=== PATIENT | male | born 1980 | race Caucasian/White ===

== ENCOUNTER 2024-04-03 08:23 | Outpatient (REF) | payer MEDICAID, SELFPAY ==
[2024-04-03 14:17] LABS: MANUAL DIFF FLAG NO
[2024-04-03 14:42] LABS: Basophils Absolute Auto 0.1 X10*3/uL (0.0-0.2); Basophils Percent Auto 0.7 % (0-2); Eosinophils Absolute Auto 0.2 X10*3/uL (0.0-0.4); Eosinophils Percent Auto 2.1 % (0-4); Hematocrit 48.4 % (42.0-52.0); Hemoglobin 16.2 g/dl (14.0-18.0); Imm Gran Abs Auto 0.03 X10*3/uL (0.00-0.03); Imm Gran Pct Auto 0.3 % (0.0-0.4); Lymphocytes Absolute Auto 2.3 X10*3/uL (1.2-4.9); Lymphocytes Percent Auto 22.5 % (20-40); Mean Corpuscular HGB Conc 33.5 g/dl (31.0-36.0); Mean Corpuscular Hemoglobin 28.5 pg (27.0-33.0); Mean Corpuscular Volume 85.2 fL (80.0-98.0); Mean Platelet Volume 10.8 fL (9.4-12.4); Monocytes Absolute Auto 0.6 X10*3/uL (0.1-1.2); Monocytes Percent Auto 6.2 % (2-11); Neutrophils Absolute Auto 6.9 x10*3/uL (2.0-8.3); Neutrophils Percent Auto 68.2 % (45-73); Platelet Count 285 X10*3/uL (160-400); Red Blood Count 5.68 X10*6/uL (4.60-5.80); Red Cell Distribution Width 12.9 % (11.0-16.0); White Blood Count 10.1 X10*3/uL (4.8-10.8)
[2024-04-03 15:09] LABS: Alanine Aminotransferase 25 U/L (0-40); Albumin Level 4.1 g/dL (3.5-5.0); Alkaline Phosphatase 113 U/L (39-117); Anion Gap 18 (12-20); Aspartate Amino Transferase 22 U/L (5-37); Bilirubin Direct 0.1 mg/dL (0.0-0.5); Bilirubin Total 0.6 mg/dL (0.0-1.0); Blood Urea Nitrogen 17 mg/dL (9-16); Calcium 9.7 mg/dL (8.4-10.2); Carbon Dioxide 23 mmol/L (22-29); Chloride 101 mmol/L (96-108); Cholesterol 283 mg/dL (<200); Estimated Glomerular Filt Rate > 60; Glucose Fasting 245 mg/dL (60-99); Glucose Random 243 mg/dL (60-115); HDL Cholesterol 37 mg/dL (>40); Potassium 4.2 mmol/L (3.3-5.1); Sodium 138 mmol/L (135-145); Total Protein 7.7 g/dL (6.5-8.0); Triglycerides 521 mg/dL (<150)
[2024-04-03 15:10] LABS: Creatinine Urine 147.46 mg/dL; Microalbum/Creatinine Ratio Ur 35.9 ug/mg cr (<30)
[2024-04-03 15:11] LABS: Prostate Specific Antigen 0.46 ng/mL (<0.05-4.0)
[2024-04-03 15:22] LABS: TSH reflex Free T4 1.96 uIU/mL (0.32-4.0)
[2024-04-03 15:34] LABS: Estimated Average Glucose 223 mg/dL; Hemoglobin A1c % 9.4 % (<6.0)
== END 2024-04-03 08:24 | disposition home or self-care (01) ==
LOC: HO.CHCLDS 08:23
PROVIDERS: Visit Provider Pediatrics
DX: R73.03 Prediabetes (principal); R35.0 Frequency of micturition
CPT/HCPCS: 36415; 80048; 80053; 80061; 82043; 82248; 82570; 83036; 84153; 84443; 85025

== ENCOUNTER 2024-12-31 09:34 | Outpatient (REF) | payer MEDICAID, SELFPAY ==
--- OUTSIDE RECORDS SUMMARY | 2024-12-31 09:51 | XMS_ITS | Encounter Summary ---
Author Organization [employer] Address 75 [facility] 7 [place] [address] Care Team Providers Care Rolling Attendant Name Role Phone Hilary Levy MD Primary Care Provider [phone] Dulce Borrero PharmD Unavailable [phone] Encounter Details Date Type Department Care Team ([facility] st Contact Info) Description 12/31/2024 9:00 AM EDT Office Visit [facility] CHC MED & PEDS [address] [place], [place] [phone] Hilary Levy MD [address] [place] [address] Type 2 diabetes mellitus with morbid obesity (CMS/HCC) (Primary Dx); New onset type 2 diabetes mellitus (CMS/HCC) Social History Tobacco Use Types Packs/Day Years Used Date Smoking Tobacco: Never Passive Smoke Exposure: Never Smokeless Tobacco: Never Alcohol Use Standard Drinks/Week Comments Never 0 (1 standard drink = 0.6 oz pur e alcohol) Alcohol Answer Date Recorded How often do you have a drink containing alcohol ? 1 07/01/2024 How many drinks containing a lcohol do you have on a typical day when you are drinking? 2 07/01/2024 How often do you have six or more drinks on one occasion? 1 07/01/2024 Depression Answer Date Recorded Patient Health Questionnaire-9 Score 3 08/13/2024 Patient Health Questionnaire-9 Score 3 08/13/2024 Last PHQ-9: Questionnaire Data Not on file 0 08/13/2024 Housing Stability Answer Date Recorded What is your housing situation today? I have manuel son 03/25/[address] you li ve. Do you have problems with any of the following? None of the above 03/25/2024 Food Insecurity Answer Date Recorded Within the past 12 months, y ou worried that your food would run out before you got money to buy more: Never True 03/25/2024 Within the past 12 months,th e food you bought just didn't last and you didn't have enough money to get more: Never True Transportation Answer Date Recorded In the past 12 months, has l ack of transportation kept you from medical appts, meetings, work or from getting things needed for daily living? No 03/25/2024 Utilities Answer Date Recorded In the past 12 months, has t he electric, gas, oil or water company threatened to shut off services in your home? No 03/25/2024 Depression Answer Date Recorded Patient Health Questionnaire-2 Score 1 08/13/2024 Internet Access Answer Date Recorded Internet Access Q1 Yes 04/13/2024 Internet Access Q2 Not on file 04/13/2024 Sex and Gender Information Value Date Recorded Sex Assigned at Male 06/11/2022 10:35 AM EDT Legal Sex Male 10:35 AM EDT Gender Identity Male 04/16/2024 2:33 PM EDT Sexual Orientation Straight 04/16/2024 2: 33 PM EDT documented as of this encounter Last Filed Vital Signs Vital Sign Reading Time Taken Comments Blood Pressure 158/88 12/31/2024 9:08 AM EDT Pulse 92 12/31/2024 9:08 AM EDT Temperature 36.6 ??C (97.8 ??F) 12/31/2024 9:08 AM ED T Respiratory Rate 20 12/31/2024 9:08 AM EDT Oxygen Saturation - - Inhaled Oxygen Concentration - - Weight 154 kg (339 lb) 12/31/2024 9:08 AM EDT Height 182.9 cm (6') 12/31/2024 9:08 AM EDT Body Mass Index 45.98 12/31/2024 9:08 AM EDT documented in this encounter Plan of Treatment Upcoming Encounters Date Type Department Care Team ([facility] st Contact Info) Description 01/18/2025 11:00 AM EDT Medication Management [facility] CHC MED & PEDS [address] [place] [address] Dulce Borrero, JerryD [address] [place] [address] 04/02/2025 9:00 AM EDT Office Visit [facility] CHC MED & PEDS [address] [place] [address] Hilary Levy MD [address] [place] [address] documented as of this encounter Procedures Procedure Name Priority Date/Time Associated Diagnosis Comments POCT GLUCOSE Routine 12/31/2024 9:34 AM EDT Type 2 diabetes mellitus with morbid obesity (CMS/HCC) documented in this encounter Results * POCT Glucose (12/31/2024 9:34 AM EDT) Glucose Blood, POC 152 60 - 200 mg/dL QC Media Lot # [id number] Lot# Expiration Date , Blood Capillary blood specimen / Unknown 12/31/2024 9:34 AM EDT Hilary Levy MD POINT OF CARE TEST ENTER/EDIT ORDERABLES Final Result documented in this encounter Visit Diagnoses Diagnosis Type 2 diabetes mellitus with morbid obesity (CMS/HCC)- Primary New onset type 2 diabetes mellitus (CMS/HCC) documented in this encounter Additional Health Concerns Assessment Noted Time PHQ-9 Depression Total Score: 3 08/13/19 25 10:33 AM EST documented as of this encounter Care Teams Rolling Attendant Relationship Specialty Start Date End Date Hilary Levy MD [address] [place] [address] PCP - General Family Medicine 12/31/18 Dulce Borrero, JerryD [address] [place] [address] Pharmacist Internal Medicine 09/07/24 documented as of this encounter
--- OUTSIDE RECORDS SUMMARY | 2024-12-31 09:51 | XMS_ITS | Encounter Summary ---
Author Organization [employer] Address 75 [facility] 7t [place] [address] Care Team Providers Care Vp Customer Development Name Role Phone Hilary Levy MD Primary Care Provider [phone] Dulce Borrero PharmD Unavailable Reason for Visit * Reason Comments Med Refill Encounter Details Date Type Department Care Team ([facility] st Contact Info) Description 12/30/2024 Refill [facility] CHC MED & PEDS [address] [place] [address] Dulce Borrero, PharmD [address] [place] [address] Social History Tobacco Use Types Packs/Day Years [...] PM EDT documented as of this encounter Plan of Treatment Upcoming Encounters Date Type Department Care Team (Late st Contact Info) Description 01/18/2025 11:00 AM EDT Medication Management [facility] MED & PEDS [address] [place] [address] Dulce Borrero, PharmD [address] [place] [address] 04/02/2025 9:00 AM EDT Office Visit [facility] MED & PEDS [address] [place] [address] Hilary Levy MD [address] [place] [address] documented as of this encounter Visit Diagnoses Not on filedocumented in this encounter Additional Health Concerns Assessment Noted Time PHQ-9 Depression Total Score: 3 08/13/19 25 10:33 AM EST documented as of this encounter Care Teams Vp Customer Development Relationship Specialty Start Date End Date Hilary Levy MD [address] [place] [address] PCP - General Family Medicine 12/31/18 Dulce Borrero PharmD [address] [place] [address] Pharmacist Internal Medicine 09/07/24 documented as of this encounter
--- OUTSIDE RECORDS SUMMARY | 2024-12-31 09:51 | XMS_ITS | Encounter Summary ---
Author Organization [employer] Address 75 [facility] 7t [place] [address] Care Team Providers Care Tensioning Machine Operator Name Role Phone Hilary Levy MD Primary Care Provider [phone] Dulce Borrero PharmD Unavailable [phone] Encounter Details Date Type Department Care Team (Latest Contact Info) Description 12/31/2024 Travel Social History Tobacco Use Types Packs/Day Years [...] Description 01/18/2025 11:00 AM EDT Medication Management [facility] MED & PEDS [address] [place] [address] Dulce Borrero PharmD [address] [place] [address] 04/02/2025 9:00 AM EDT Office Visit [facility] MED & PEDS [address] [place] [address] Hilary Levy MD [address] [place] [address] documented as of this encounter Visit Diagnoses Not on filedocumented in this encounter Additional Health Concerns Assessment Noted Time PHQ-9 Depression Total Score: 3 08/13/19 25 10:33 AM EST documented as of this encounter Care Teams Tensioning Machine Operator Relationship Specialty Start Date End Date Hilary Levy MD [address] [place] [address] PCP - General Family Medicine 12/31/18 Dulce Borrero PharmD [address] [place] [address] Pharmacist Internal Medicine 09/07/24 documented as of this encounter
--- OUTSIDE RECORDS SUMMARY | 2024-12-31 09:51 | XMS_ITS | Encounter Summary ---
Author Organization [employer] Address 75 [facility] 7 [place] [address] Care Team Providers Care Human Projectile Name Role Phone Hilary Levy MD Primary Care Provider [phone] Dulce Borrero PharmD Unavailable [phone] Encounter Details Date Type Department Care Team ([facility] st Contact Info) Description 04/16/2024 Orders Only [facility] CHC MED & PEDS [address] [place], [place] [phone] Hilary Levy MD [address] [place] [address] New onset type 2 diabetes mellitus (CMS/HCC) Social History Tobacco Use Types Packs/Day Years Used Date Smoking Tobacco: Never Passive Smoke Exposure: Never Smokeless Tobacco: Never Alcohol Use Standard Drinks/Week Comments Never 0 (1 standard drink = 0.6 oz pur e alcohol) Depression Answer Date Recorded Patient Health Questionnaire-9 Score 12 04/02/2024 Patient Health Questionnaire-9 Score 12 04/02/2024 Last PHQ-9: Questionnaire Data Not on file 0 04/02/2024 Housing Stability Answer Date Recorded What is your housing situation today? I have manuelroxanna son 03/25/[address] you [...] Answer Date Recorded Patient Health Questionnaire-2 Score 4 04/02/2024 Internet Access Answer Date Recorded Internet Access [...] Description 01/18/2025 11:00 AM EDT Medication Management [facility] MED & PEDS [address] [place] [address] Dulce Borrero PharmD [address] [place] [address] 04/02/2025 9:00 AM EDT Office Visit [facility] MED & PEDS [address] [place] [address] Hilary Levy MD [address] [place] [address] documented as of this encounter Visit Diagnoses Diagnosis New onset type 2 diabetes mellitus (CMS/HCC) documented in this encounter Additional Health Concerns Assessment Noted Time PHQ-9 Depression Total Score: 12 024 2:49 PM EDT documented as of this encounter Care Teams Human Projectile Relationship Specialty Start Date End Date Hilary Levy MD [address] [place] [address] PCP - General Family Medicine 12/31/18 Dulce Borrero PharmD [address] [place] [address] Pharmacist Internal Medicine 09/07/24 documented as of this encounter
--- OUTSIDE RECORDS SUMMARY | 2024-12-31 09:51 | XMS_ITS | Encounter Summary ---
Author Organization [employer] Address 75 [facility] 7 [place] [address] Care Team Providers Care Appliquer Name Role Phone Hilary Levy MD Primary Care Provider [phone] Dulce Borrero PharmD Unavailable [phone] Reason for Visit * Reason Comments Med Change Request Encounter Details Date Type Department Care Team ([facility] Contact Info) Description 04/16/2024 Refill C CHC MED & PEDS [address] [place], [place] [phone] Hilary Levy MD [address] [place] [address] Social History Tobacco Use Types Packs/Day Years [...] Description 01/18/2025 11:00 AM EDT Medication Management [facility] MED & PEDS [address] [place] [address] Dulce Borrero PharmD [address] [place] [address] 04/02/2025 9:00 AM EDT Office Visit [facility] MED & PEDS [address] [place] [address] Hilary Levy MD [address] [place] [address] documented as of this encounter Visit Diagnoses Not on filedocumented in this encounter Additional Health Concerns Assessment Noted Time PHQ-9 Depression Total Score: 12 024 2:49 PM EDT documented as of this encounter Care Teams Appliquer Relationship Specialty Start Date End Date Hilary Levy MD [address] [place] [address] PCP - General Family Medicine 12/31/18 Dulce Borrero PharmD [address] [place] [address] Pharmacist Internal Medicine 09/07/24 documented as of this encounter
--- OUTSIDE RECORDS SUMMARY | 2024-12-31 09:51 | XMS_ITS | Clinical Summary ---
Author Organization [employer] Address [address] [facility] 7t [place] [address] Care Team Providers Care Goodwill Ambassador Name Role Phone Hilary Levy MD Primary Care Provider [phone] Dulce Borrero PharmD Unavailable [phone] Allergies No known active allergies Medications * This document contains information received from the source organization and may not represent a complete record from that organization. lidocaine-pril ocaine (Emla) 2.5-2.5 % cream apply by topical route 2 times every day as needed. as needed 04/27/20 22 Active Blood Glucose Monitoring Suppl (Axeda Lite) w/Device kitIndications :New onset type 2 diabetes mellitus ([facility]) Use to test blood sugar 2 times daily 1 kit 04/16/20 24 Active Blood Pressure kitIndications :New onset type 2 diabetes mellitus ([facility]) Check BP daily 1 kit 06/04/20 24 Active ibuprofen 600 MG tablet TAKE 1 TABLET BY MOUTH EVERY 8 HOURS NEEDED FOR PAIN 90 tablet 2 07/21/20 24 Active metFORMIN (Glucophage) 1000 MG tablet Take 1 tablet (1,000 mg) by mouth with breakfast and with evening meal. 60 tablet 08/13/19 25 026 Active omega-3, EPA + DHA, (fish oil) 1000 MG capsule Take 1 capsule orally twice a day 60 capsule 08/13/19 25 Active lisinopril 20 MG tablet Take 1 tablet (20 mg) by mouth Once per day. 30 tablet 08/13/19 25 026 Active aspirin 81 MG EC tablet Take 1 tablet (81 mg) by mouth Once per day. 30 tablet 08/13/19 25 026 Active melatonin 10 MG tablet Take 1 tab orally at bedtime for insomnia 30 tablet 5 08/13/19 25 Active Alcohol Swabs 70 % padsIndication s:New onset type 2 diabetes mellitus (CMS/HCC) Use to test blood sugar 2 times daily 100 each 10/24/19 25 Active [facility] BLOOD SUGAR TWICE A DAY 100 each 10/24/19 25 Active Semaglutide,0. 25 or 0.5MG/DOS, (Ozempic, 0.25 or 0.5 MG/DOSE,) 2 MG/3ML solution pen-injector Inject 0.25 mg under the skin 1 (one) time per week for 28 days, THEN 0.5 mg 1 (one) time per week for 14 days. Continue 0.5mg weekly if tolerated. 3 mL 1 10/24/19 25 Active loratadine (Claritin) 10 MG tablet Take 1 tablet (10 mg) by mouth Once per day. 30 tablet 01/01/20 25 Active glucose blood (FREESTYLE LITE) test stripIndicatio ns:New onset type 2 diabetes mellitus (CMS/HCC) Use to test blood sugar 2 times daily 100 each 01/01/20 25 026 Active loratadine (Claritin) 10 MG tablet Take 1 tablet (10 mg) by mouth Once per day. 30 tablet 08/13/19 25 025 Discontinued(Re order (will not trigger notification to Pharmacy)) glucose blood (FREESTYLE LITE) test stripIndicatio ns:New onset type 2 diabetes mellitus (CMS/HCC) Use to test blood sugar 2 times daily 100 each 10/24/19 25 025 Discontinued(Re order (will not trigger notification to Pharmacy)) Active Problems Problem Noted Date Diagnosed Date Morbid obesity with BMI of 40.0-44.9, adult 06/13 New onset type 2 diabetes mellitus 04/16/2024 Overview (04/16/2024): Vladimir`s a1c is 9.4 ,new onset DM, has help at home and family hx of DM.Staretd losing weight already. Declines referral to DM nurse at this time. Start metformin Dyslipidemia 04/16/2024 Encounters Date Type Department Care Team Description 12/31/2024 9:00 AM EDT Office Visit [facility] MED & PEDS [address] [place] [address] Hilary Levy MD Type 2 diabetes mellitus with morbid obesity (CMS/HCC) (Primary Dx); New onset type 2 diabetes mellitus (CMS/HCC) 12/31/2024 Travel 12/30/2024 Refill [facility] MED & PEDS [address] [place] [address] Dulce Borrero, PharmD 11/24/2024 Travel 11/20/2024 Travel 10/23/2024 Population Health Risk Score [facility] () Department [address] [place] [phone] Provider, Population Health Generic 10/23/2024 Travel 10/06/2024 Telephone [facility] MED & PEDS [address] [place] [address] Dulce Borrero, PharmD 10/06/2024 Travel from Last 3 Months Immunizations Immunization Administration Dates Next Due Hep B, adult 11/24/2024,10/23/2024 Pneumococcal Conjugate PCV 20 10/23/2024 Tdap 12/03/2014 Social History Tobacco Use Types Packs/Day Years [...] Orientation Straight 04/16/2024 2: 33 PM EDT Last Filed Vital Signs Vital Sign Reading Time Taken Comments Blood Pressure 158/88 12/31/2024 9:08 AM EDT Pulse 92 12/31/2024 9:08 AM EDT Temperature 36.6 ??C (97.8 ??F) 12/31/2024 9:08 AM ED T Respiratory Rate 20 12/31/2024 9:08 AM EDT Oxygen Saturation 97% 10/23/2024 10:25 AM EDT Inhaled Oxygen Concentration - - Weight 154 kg (339 lb) 12/31/2024 9:08 AM EDT Height 182.9 cm (6') 12/31/2024 9:08 AM EDT Body Mass Index 45.98 12/31/2024 9:08 AM EDT Plan of Treatment Upcoming Encounters Date Type Department Care Team (Late st Contact Info) Description 01/18/2025 11:00 AM EDT Medication Management [facility] MED & PEDS [address] [place], [place] [phone] Dulce Borrero PharmD [address] [place] [address] 04/02/2025 9:00 AM EDT Office Visit [facility] CHC MED & PEDS [address] [place], [place] [phone] Hilary Levy MD [address] [place] [address] Health Maintenance Due Date Last Done Comments HIV Screening 1982 Disability Screening 1982 Diabetes: Foot Exam 1992 Eye Exam 1992 Family Planning (PISQ) 1997 Hepatitis C Screening 2000 COVID-19 Vaccine ( season) 2024 09/18/2021, 03/19/2021, 02/26/2021 Influenza Vaccine (#1) 2024 DTaP/Tdap/Td Vaccines (2 - Td or Tdap) 12/03/2024 12/03/2014 Diabetes: Hemoglobin A1C 01/23/2025 025, 07/01/2024, 04/03/2024, Additional history exists SDOH Screening 03/25/2025 03/25/2024 Diabetes: Urine Protein Screening 04/03/2025 04/03/2024 Lipid Panel 04/03/2025 04/03/2024, 12/20/2021 Hepatitis B Vaccines (3 of 3 - 19+ 3-dose series) 04/25/2025 11/24/2024, 10/23/2024 Alcohol/Substance Use Screening 07/01/2025 07/01/2024 Depression Screening 08/13/2025 08/13/2024, 08/13/19 Tobacco Screening 08/13/2025 08/13/2024 Zoster Vaccines (1 of 2) 2032 RSV Patients and Patients Aged 60 years or older (1 - 1-dose 75+ series) 2057 Pneumococcal Vaccine: Pediatrics (0 to 5 Years) and At-Risk Patients (6 to 49) Years) Completed 10/23/2024 HIB Vaccines Aged Out No longer eligi ble based on patient's age to complete this topic HPV Vaccines Aged Out No longer eligi ble based on patient's age to complete this topic Hepatitis A Vaccines Aged Out No long er eligible based on patient's age to complete this topic IPV Vaccines Aged Out No longer eligi ble based on patient's age to complete this topic Meningococcal B Vaccine Aged Out No l onger eligible based on patient's age to complete this topic Meningococcal Vaccine Aged Out No augie seble eligible based on patient's age to complete this topic RSV under 20 months Aged Out No longe r eligible based on patient's age to complete this topic Rotavirus Vaccines Aged Out No longer eligible based on patient's age to complete this topic Procedures Procedure Name Priority Date/Time Associated Diagnosis Comments POCT GLUCOSE Routine 12/31/2024 9:34 AM EDT Type 2 diabetes mellitus with morbid obesity ([facility]/HCC) POCT GLYCATED HEMOGLOBIN, TOTAL Routine 10/23/2024 10:22 AM EDT Type 2 diabetes mellitus with morbid obesity ([facility]/HCC) ALBUMIN, RANDOM URINE W/CREATININE Routine 04/03/2024 8:30 AM EDT Prediabetes Urinary frequency LIPID PANEL, STANDARD Routine 04/03/2024 8:26 AM EDT Prediabetes Urinary frequency from Last 3 Months or Most Recently Relevant to Health Maintenance Results * POCT Glucose (12/31/2024 9:34 AM EDT) Glucose Blood, POC 152 60 - 200 mg/dL QC Media Lot # [id number] Lot# Expiration Date 425 Blood Capillary blood specimen / Unknown 12/31/2024 9:34 AM EDT Hilary Levy MD POINT OF CARE TEST ENTER/EDIT ORDERABLES Final Result * (ABNORMAL) POCT A1C (10/23/2024 10:22 AM EDT) Hemoglobin A1C 7.3(A) 4.0 - 6.0 % QC Media Lot # [id number] Lot# Expiration Date Blood 10/23/2024 10:2 2 AM EDT Hilary Levy MD POINT OF CARE TEST ENTER/EDIT ORDERABLES Final Result * (ABNORMAL) Albumin, Random Urine W/Creatinine (04/03/2024 8:30 AM EDT) Creatinine, Urine 147.46 mg/dL [facility] Microalbumin Urine 53.0 mg/L [facility] Microalbum Creatinine Ratio Ur 35.9(H) <30 ug/mg cr [facility] Comment:Albumin/Creatinine R atio Reference Ranges: Normal: < 30 ug/mg creatinine Microalbuminuria: 30 - 300 ug/mg creatinineClinical Albuminuria: > 300 ug/mg creatinine Urine (Urine, Random) 04/03/2024 8:30 AM EDT 04/03/2024 2:18 PM EDT Hilary Levy MD LAB URINE ORDERABLES Final Re sult [facility] [address] [place] [address] [phone] * (ABNORMAL) Lipid Panel, Standard (04/03/2024 8:26 AM EDT) Triglycerides 521(H) <150 mg/dL [facility] Comment:Desirable Triglyceri de: less than 150 mg/dLBorderline High Triglyceride 150-199 mg/dLHigh Triglyceride: 200-499 mg/dLVery High Triglyceride: greater than or equal to 5OO mg/dL Cholesterol 283(H) <200 mg/dL [facility] Comment:Desirable Cholestero l: less than 200 mg/dLBorderline High Cholesterol: 200-239 mg/dLHigh Cholesterol: greater than 239 mg/dL LDL Cholesterol Calculated TNP <100 mg/dL [facility] Comment:Unable to calculate the LDL. The formula of Friedwald,Franco, and Daphney is only valid if the triglycerides areless than 400 mg/dl. HDL Cholesterol 37(L) >40 mg/dL [facility] Comment:Desirable HDL: great er than 40 mg/dL Note: This HDL assay may give artificially low results in patients with liver disease. Blood Venous blood specimen / Unknown 04/03/2024 8:26 AM EDT 04/03/2024 2:19 PM EDT Hilary Levy MD LAB BLOOD ORDERABLES Final Re sult [facility] [address] [place] [address] [phone] from Last 3 Months or Most Recently Relevant to Health Maintenance Insurance [id number] Care Teams Goodwill Ambassador Relationship Specialty Start Date End Date Hilary Levy MD [address] [place] [address] PCP - General Family Medicine 5/22/19 Dulce Borrero, JerryD [address] [place] [address] Pharmacist Internal Medicine 09/07/24
--- OUTSIDE RECORDS SUMMARY | 2024-12-31 09:52 | XMS_ITS | Encounter Summary ---
Author Organization [employer] Address 75 [facility] 7 [place] [address] Care Team Providers Care Patient Portal Concierge Name Role Phone Hilary Levy MD Primary Care Provider Dulce Borrero PharmD Unavailable [phone] Reason for Visit * Reason Comments Med Change Request Encounter Details Date Type Department Care Team ([facility] Contact Info) Description 04/16/2024 Refill [facility] CHC MED & PEDS [address] [place], [place] [phone] Hilary Levy MD [address] [place] [address] New onset type 2 diabetes mellitus (CMS/HCC) [...] your housing situation today? I have manuel huy 03/25/[address] you li [...] Description 01/18/2025 11:00 AM EDT Medication Management [facility] MED & PEDS [address] [place] [address] Dulce Borrero, PharmD [address] [place] [address] 04/02/2025 9:00 AM EDT Office Visit [facility] MED & PEDS [address] [place] [address] Hilary Levy MD [address] [place] [address] documented as of this encounter Visit Diagnoses Diagnosis New onset type 2 diabetes mellitus (CMS/HCC) documented in this encounter Additional Health Concerns Assessment Noted Time PHQ-9 Depression Total Score: 12 024 2:49 PM EDT documented as of this encounter Care Teams Patient Portal Concierge Relationship Specialty Start Date End Date Hilary Levy MD [address] [place] [address] PCP - General Family Medicine 12/31/18 Dulce Borrero, PharmD [address] [place] [address] Pharmacist Internal Medicine 09/07/24 documented as of this encounter
--- OUTSIDE RECORDS SUMMARY | 2024-12-31 09:52 | XMS_ITS | Clinical Summary ---
Author Organization [employer] [facility] ity Address [address] [place] [address] Care Team Providers Care Sql Ssrs Ssis Developer Name Role Phone Unavailable Primary Care Provider Unavailabl e Social History Tobacco Use Types Packs/Day Years Used Date Smoking Tobacco: Never Assessed Sex and Gender Information Value Date Recorded Sex Assigned at Not on file Legal Sex Male 5:20 AM EST Gender Identity Not on file Sexual Orientation Not on file Plan of Treatment Health Maintenance Due Date Last Done Comments DTaP,Tdap,and Td Vaccines (1 - Tdap) 2001 Hepatitis B Vaccines (1 of 3 - 19+ 3-dose series) 2001 Cholesterol Screening (Lipid Panel) 07/15/2022 Depression Screening 07/15/2022 HIV Screening 07/15/2022 Hepatitis C Screening 07/15/2022 Social Influencers of Health Screening 07/15/2022 COVID-19 Vaccine (2023-2 5 season) 2024 Influenza Vaccine (Season Ended) 2025 HIB Vaccines Aged Out No longer eligi [...] on patient's age to complete this topic MMR Vaccines Aged Out No longer eligi ble based on patient's age to complete this topic Meningococcal ACWY Vaccine Aged Out N o longer eligible based on patient's age to complete this topic Meningococcal B Vaccine Aged Out No l onger eligible based on patient's age to complete this topic Pneumococcal Vaccine: Pediat rics (0 to 5 Years) and At-Risk Patients (6 to 64 Years) Aged Out No longer eligible b ased on patient's age to complete this topic RSV Immunization Patients Un milady 20 months Aged Out No longer eligible b ased on patient's age to complete this topic Varicella Vaccines Aged Out No longer eligible based on patient's age to complete this topic
[2024-12-31 14:35] LABS: Cholesterol 270 mg/dL (<200); HDL Cholesterol 38 mg/dL (>40); LDL Cholesterol Calculated 183 mg/dL (<100); Triglycerides 247 mg/dL (<150)
== END 2024-12-31 09:35 | disposition home or self-care (01) ==
LOC: HO.CHCLDS 09:34
PROVIDERS: Visit Provider Pediatrics
DX: E66.01 Morbid (severe) obesity due to excess calories (principal); E11.59 Type 2 diabetes mellitus with other circulatory complications
CPT/HCPCS: 36415; 80061

== ENCOUNTER 2025-06-01 10:34 | Outpatient (REF) | payer MEDICAID, SELFPAY ==
--- OUTSIDE RECORDS SUMMARY | 2025-06-01 12:37 | XMS_ITS | Encounter Summary ---
Author Organization [employer] Address [address] [facility] 7 [place] [address] Care Team Providers Care Kindergarten Aide Name Role Phone Hilary Levy MD Primary Care Provider [phone] Dulce Borrero PharmD Unavailable [phone] Encounter Details Date Type Department Care Team ([facility] st Contact Info) Description 05/31/2025 Orders Only [facility] CHC MED & PEDS [address] [place], [place] [phone] Hilary Levy MD [address] [place] [address] Family planning (Primary Dx) Social History Tobacco Use Types Packs/Day Years [...] before you got money to buy more: Sometimes True 2024 Within the past 12 months,th e food you bought just didn't last and you didn't have enough money to get more: Sometimes True 03/25/2025 Transportation Answer Date Recorded In the past [...] Care Team (Late st Contact Info) Description 06/16/2025 11:30 AM EST Office Visit [facility] MED & PEDS [address] [place] [address] Hilary Levy MD [address] [place] [address] Scheduled Orders Name Type Priority Associated Diagnoses Orde r Schedule Sickle Cell Screen Lab Routine Family planning Expected: 05/31/2025 (Approximate), Expires: 05/31/2026 documented as of this encounter Visit Diagnoses Diagnosis Family planning- Primary Other general counseling and advice for contraceptive management documented in this encounter Additional Health Concerns Assessment Noted Time PHQ-9 Depression Total Score: 3 08/13/19 25 10:33 AM EST documented as of this encounter Care Teams Kindergarten Aide Relationship Specialty Start Date End Date Hilary Levy MD [address] [place] [address] PCP - General Family Medicine 12/31/18 Dulce Borrero, [address] [place] [address] Pharmacist Internal Medicine 09/07/24 documented as of this encounter
--- OUTSIDE RECORDS SUMMARY | 2025-06-01 12:37 | XMS_ITS | Encounter Summary ---
Author Organization [employer] Address [address] [facility] 7 [place] [address] Care Team Providers Care Engine Mechanic Name Role Phone Hilary Levy MD Primary Care Provider [phone] Dulce Borrero PharmD Unavailable [phone] Reason for Visit * Reason Onset Date Comments Med Refill 02/15/2025 Encounter Details Date Type Department Care Team ([facility] Contact Info) Description 02/15/2025 Telephone [facility] CHC MED & PEDS [address] [place] [address] Hilary Levy MD [address] [place] [address] Med Refill Social History Tobacco Use Types Packs/Day Years [...] PM EDT documented as of this encounter Miscellaneous Notes * Telephone Encounter - Augusta Maldonado LPN - 02/15/2025 9:26 AM EDT Medication was sent to [facility] on 01/06/25 with 1 refill patient can call pharmacy and transfermedication. * Telephone Encounter - Tera Fulton - 02/15/2025 9:19 AM EDT TC from pt requesting medication refill. Medications needing refill : Semaglutide,0.25 or 0.5MG/DOS, (Ozempic, 0.25 or 0.5 MG/DOSE,) 2 MG/3ML solution pen-injector To be sent to: [facility]/pharmacy #[id number] - [address] documented in this encounter Plan of Treatment Upcoming Encounters Date Type Department Care Team (Late st Contact Info) Description 06/16/2025 11:30 AM EST Office Visit [facility] CHC MED & PEDS [address] [place] [address] Hilary Levy MD [address] [place] [address] documented as of this encounter Visit Diagnoses Not on filedocumented in this encounter Additional Health Concerns Assessment Noted Time PHQ-9 Depression Total Score: 3 08/13/19 10:33 AM EST documented as of this encounter Care Teams Engine Mechanic Relationship Specialty Start Date End Date Hilary Levy MD [address] [place] [address] PCP - General Family Medicine 12/31/18 Dulce Borrero PharmD [address] [place] [address] Pharmacist Internal Medicine 09/07/24 documented as of this encounter
--- OUTSIDE RECORDS SUMMARY | 2025-06-01 12:37 | XMS_ITS | Encounter Summary ---
Author Organization [employer] Address [address] [facility] 7 [place] [address] Care Team Providers Care Material Assembler Name Role Phone Hilary Levy MD Primary Care Provider [phone] Dulce Borrero PharmD Unavailable [phone] Encounter Details Date Type Department Care Team ([facility] st Contact Info) Description 04/16/2024 Orders Only [facility] CHC MED & PEDS [address] [place], [place] [phone] Hilary Levy MD [address] [place] [address] New onset type 2 diabetes mellitus (CMS/HCC) [...] Upcoming Encounters Date Type Department Care Team ([facility] st Contact Info) Description 06/16/2025 11:30 AM EST Office Visit [facility] MED & PEDS [address] [place] [address] Hilary Levy MD [address] [place] [address] documented as of this encounter Procedures Procedure Name Priority Date/Time Associated Diagnosis Comments LIPID PANEL, STANDARD Routine 12/31/2024 9:35 AM EDT New onset type 2 diabetes mellitus (CMS/HCC) documented in this encounter Results * (ABNORMAL) Lipid Panel, Standard (12/31/2024 9:35 AM EDT) Triglycerides 247(H) <150 mg/dL [facility] Comment:Desirable Triglyceri de: less than 150 mg/dLBorderline High Triglyceride 150-199 mg/dLHigh Triglyceride: 200-499 mg/dLVery High Triglyceride: greater than or equal to 5OO mg/dL Cholesterol 270(H) <200 mg/dL [facility] Comment:Desirable Cholestero l: less than 200 mg/dLBorderline High Cholesterol: 200-239 mg/dLHigh Cholesterol: greater than 239 mg/dL LDL Cholesterol Calculated 183(H) <100 mg/dL [facility] Comment:Desirable LDL: less than 100 mg/dLNear Optimal/Above Optimal LDL: 110- 129 mg/dLBorderline High LDL: 130-159 mg/dLHigh LDL: 160-189 mg/dLVery High LDL: greater than or equal to 190 mg/dL HDL Cholesterol 38(L) >40 mg/dL [facility] Comment:Desirable HDL: great er than 40 mg/dL Note: This HDL assay may give artificially low results in patients with liver disease. 12/31/2024 9:35 AM EDT 12/31/2024 2:06 PM EDT us Hilary Levy MD LAB BLOOD ORDERABLES Final Re sult [facility] [address] [place] [address] [phone] documented in this encounter Visit Diagnoses Diagnosis New onset type 2 diabetes mellitus (HCC) documented in this encounter Additional Health Concerns Assessment Noted Time PHQ-9 Depression Total Score: 12 024 2:49 PM EDT documented as of this encounter Care Teams Material Assembler Relationship Specialty Start Date End Date Hilary Levy MD [address] [place] [address] PCP - General Family Medicine 12/31/18 Dulce Borrero PharmD [address] [place] [address] Pharmacist Internal Medicine 09/07/24 documented as of this encounter
--- OUTSIDE RECORDS SUMMARY | 2025-06-01 12:37 | XMS_ITS | Encounter Summary ---
Author Organization [employer] Address [address] [facility] 7 [place] [address] Care Team Providers Care Saw Feeder Name Role Phone Hilary Levy MD Primary Care Provider [phone] Dulce Borrero PharmD Unavailable [phone] Reason for Visit * Reason Comments Med Change Request Encounter Details Date Type Department Care Team ([facility] Contact Info) Description 04/16/2024 Refill C CHC MED & PEDS [address] [place], [place] [phone] Hilary Levy MD [address] [place] [address] Social History Tobacco Use Types Packs/Day Years [...] EST Office Visit [facility] MED & PEDS [address] [place] [address] Hilary Levy MD [address] [place] [address] documented as of this encounter Visit Diagnoses Not on filedocumented in this encounter Additional Health Concerns Assessment Noted Time PHQ-9 Depression Total Score: 12 024 2:49 PM EDT documented as of this encounter Care Teams Saw Feeder Relationship Specialty Start Date End Date Hilary Levy MD [address] [place] [address] PCP - General Family Medicine 12/31/18 Dulce Borrero PharmD [address] [place] [address] Pharmacist Internal Medicine 09/07/24 documented as of this encounter
--- OUTSIDE RECORDS SUMMARY | 2025-06-01 12:37 | XMS_ITS | Encounter Summary ---
Author Organization [employer] Address [address] [facility] 7 [place] [address] Care Team Providers Care Air Export Agent Name Role Phone Hilary Levy MD Primary Care Provider [phone] Dulce Borrero PharmD Unavailable [phone] Reason for Visit * Reason Onset Date Comments Lab Orders 05/24/2025 Encounter Details Date Type Department Care Team ([facility] Contact Info) Description 05/24/2025 Telephone [facility] CHC MED & PEDS [address] [place] [address] Hilary Levy MD [address] [place] [address] Lab Orders Social History Tobacco Use Types Packs/Day Years [...] encounter Miscellaneous Notes * Telephone Encounter - Sidra Urbano RN - 06/01/2025 9:31 AM EDT TC to patient to inform blood work has been ordered. Patient stated he will come in today to get lab work completed. * Telephone Encounter - Sidra Urbano RN - 05/27/2025 10:02 AM EDT Attempted to contact patient over phone to get clarification on previous message sent. No answer. Message left to return call. Will route to provider for review and advisement. * Telephone Encounter - Jeanne Landin - 05/27/2025 8:59 AM EDT Tc from pt requesting the status Contact pt at [phone] * Telephone Encounter - Tera Fulton - 05/24/2025 2:32 PM EDT Tc from pt requesting a blood work for sickle cell due to his being and testing positive. Contact pt when order has been placed at [phone] documented in this encounter Plan of Treatment Upcoming Encounters Date Type Department Care Team (Late st Contact Info) Description 06/16/2025 11:30 AM EST Office Visit [facility] CHC MED & PEDS [address] [place] [address] Hilary Levy MD [address] [place] [address] documented as of this encounter Visit Diagnoses Not on filedocumented in this encounter Additional Health Concerns Assessment Noted Time PHQ-9 Depression Total Score: 3 08/13/19 25 10:33 AM EST documented as of this encounter Care Teams Air Export Agent Relationship Specialty Start Date End Date Hilary Levy MD [address] [place] [address] PCP - General Family Medicine 12/31/18 Dulce Borrero PharmD [address] [place] [address] Pharmacist Internal Medicine 09/07/24 documented as of this encounter
--- OUTSIDE RECORDS SUMMARY | 2025-06-01 12:37 | XMS_ITS | Clinical Summary ---
Author Organization [employer] Address [address] [facility] 7t [place] [address] Care Team Providers Care Powder Operator Name Role Phone Hilary Levy MD Primary Care Provider [phone] Dulce Borrero PharmD Unavailable [phone] Allergies No known active allergies Medications * This document contains information received from the source organization and may not represent a complete record from that organization. lidocaine-prilo chace (Emla) 2.5-2.5 % cream apply by topical route 2 times every day as needed. as needed 2 Active Blood Glucose Monitoring Suppl (Vurb Lite) w/Device kitIndications: New onset type 2 diabetes mellitus (HCC) Use to test blood sugar 2 times daily 1 kit 4 Active Blood Pressure kitIndications: New onset type 2 diabetes mellitus (HCC) Check BP daily 1 kit 4 Active ibuprofen 600 MG tablet TAKE 1 TABLET BY MOUTH EVERY 8 HOURS NEEDED FOR PAIN 90 tablet 2 4 Active metFORMIN (Glucophage) 1000 MG tablet Take 1 tablet (1,000 mg) by mouth with breakfast and with evening meal. 60 tablet 11 5 08/13/19 26 Active omega-3, EPA + DHA, (fish oil) 1000 MG capsule Take 1 capsule orally twice a day 60 capsule 5 Active lisinopril 20 MG tablet Take 1 tablet (20 mg) by mouth Once per day. 30 tablet 11 5 08/13/19 26 Active aspirin 81 MG EC tablet Take 1 tablet (81 mg) by mouth Once per day. 30 tablet 5 08/13/19 26 Active melatonin 10 MG tablet Take 1 tab orally at bedtime for insomnia 30 tablet 5 Active Alcohol Swabs 70 % padsIndications :New onset type 2 diabetes mellitus (HCC) Use to test blood sugar 2 times daily 100 each 5 Active TRUEplus Lancets 33G [facility] TEST BLOOD SUGAR TWICE A DAY 100 each 5 Active Semaglutide,0.2 5 or 0.5MG/DOS, (Ozempic, 0.25 or 0.5 MG/DOSE,) 2 MG/3ML solution pen-injector Inject 0.5 mg under the skin 1 (one) time per week. 3 mL 1 5 Active loratadine (Claritin) 10 MG tablet Take 1 tablet (10 mg) by mouth Once per day. 30 tablet 5 Active glucose blood (FREESTYLE LITE) test stripIndication s:New onset type 2 diabetes mellitus (HCC) Use to test blood sugar 2 times daily 100 each 5 01/01/20 26 Active Active Problems Problem Noted Date Diagnosed Date Morbid obesity with BMI of 40.0-44.9, adult ([facility] /HCC) 07/01/2024 New onset type 2 diabetes mellitus 04/16/2024 Overview (04/16/2024): Vladimir`s a1c is 9.4 ,new onset DM, has help at home and family hx of DM.Staretd losing weight already. Declines referral to DM nurse at this time. Start metformin Dyslipidemia 04/16/2024 Encounters Date Type Department Care Team Description 05/31/2025 Orders Only [facility] CHC MED & PEDS [address] [place], [place] [phone] Hilary Levy MD Family planning (Primary Dx) 05/24/2025 Telephone [facility] MED & PEDS [address] [place], [place] [phone] Hilary Levy MD Lab Orders 05/04/2025 Telephone [facility] MEDICINE [address] [place] [phone] Hilary Levy MD No Show 05/03/2025 Telephone [facility] CHC MED & PEDS [address] [place] [address] Hilary Levy MD chart prep 04/27/2025 Patient Outreach [address] [address] Hilary Levy MD Pre-visit Planning (SDOH screening completed on 03/25/25) 03/25/2025 Patient Outreach [address] [address] Hilary Levy MD Care Coordination (CHW outreach for SDOH food needs-LVM ) 03/25/2025 Patient Outreach [address] [address] Hilary Levy MD Pre-visit Planning (SDOH screening positive and Tobacco screening negative) from Last 3 Months Immunizations Immunization Administration [...] 92 12/31/2024 9:08 AM EDT Temperature 36.6 C (97.8 F) 12/31/2024 9:08 AM EDT Respiratory Rate 20 12/31/2024 9:08 AM EDT [...] Description 06/16/2025 11:30 AM EST Office Visit [facility] CHC MED & PEDS [address] [place] [address] Hilary Levy MD [address] [place] [address] Health Maintenance Due Date Last Done Comments HIV Screening 1982 Disability Screening 1982 Diabetes: Foot Exam 1992 Eye Exam 1992 Family Planning (PISQ) 1997 HPV Vaccines (1 - Male 3-dose series) 1997 Hepatitis C Screening 2000 DTaP/Tdap/Td Vaccines (2 - Td or Tdap) 12/03/2024 12/03/2014 Diabetes: Hemoglobin A1C 01/23/2025 025, 07/01/2024, 04/03/2024, Additional history exists Diabetes: Urine Protein Screening 04/03/2025 04/03/2024 COVID-19 Vaccine ( - season) 2025 09/18/2021, 03/19/2021, 02/26/2021 Influenza Vaccine (#1) 2025 Hepatitis B Vaccines (3 of 3 - 19+ 3-dose series) 04/25/2025 11/24/2024, 10/23/2024 Alcohol/Substance Use Screening 07/01/2025 07/01/2024 Depression Screening 08/13/2025 08/13/2024, 08/13/19 25 Lipid Panel 12/31/2025 12/31/2024, 03/13, 12/20/2021 Tobacco Screening 12/31/2025 12/31/2024 SDOH Screening 03/25/2026 03/25/2025 Zoster Vaccines (1 of 2) 2032 RSV Patients and Patients Aged 60 years or older (1 - 1-dose 75+ series) 2057 Pneumococcal Vaccine: Pediatrics (0 to 5 Years) and At-Risk Patients (6 to 49) Years Completed 10/23/2024 HIB Vaccines Aged Out No [...] New onset type 2 diabetes mellitus (CMS/HCC) POCT GLYCATED HEMOGLOBIN, TOTAL Routine 10/23/2024 10:22 AM EDT Type 2 diabetes mellitus with morbid obesity (CMS/HCC) ALBUMIN, RANDOM URINE W/CREATININE Routine 04/03/2024 8:30 AM EDT Prediabetes Urinary frequency from Last 3 Months or Most Recently Relevant to Health Maintenance Results * (ABNORMAL) Lipid Panel, Standard (12/31/2024 9:35 AM EDT) Triglycerides 247(H) <150 mg/dL [facility] Comment:Desirable Triglyceri de: less than 150 mg/dLBorderline High Triglyceride 150-199 mg/dLHigh Triglyceride: 200-499 mg/dLVery High Triglyceride: greater than or equal to 5OO mg/dL Cholesterol 270(H) <200 mg/dL [facility] Comment:Desirable Cholestero l: less than 200 mg/dLBorderline High Cholesterol: 200-239 mg/dLHigh Cholesterol: greater than 239 mg/dL LDL Cholesterol Calculated 183(H) <100 mg/dL [facility] Comment:Desirable LDL: less than 100 mg/dLNear Optimal/Above Optimal LDL: 110- 129 mg/dLBorderline High LDL: 130-159 mg/dLHigh LDL: 160-189 mg/dLVery High LDL: greater than or equal to 190 mg/dL HDL Cholesterol 38(L) >40 mg/dL [facility] Comment:Desirable HDL: great er than 40 mg/dL Note: This HDL assay may give artificially low results in patients with liver disease. 12/31/2024 9:35 AM EDT 12/31/2024 2:06 PM EDT us Hilary Levy MD LAB BLOOD ORDERABLES Final Re sult [facility] [address] [place] [address] [phone] * (ABNORMAL) POCT A1C (10/23/2024 10:22 AM EDT) Hemoglobin A1C 7.3(A) 4.0 - 6.0 % QC Media Lot # [id number] Lot# Expiration Date Blood 10/23/2024 10:2 2 AM EDT Hilary Levy MD POINT OF CARE TEST ENTER/EDIT ORDERABLES Final Result * (ABNORMAL) Albumin, Random Urine W/Creatinine (04/03/2024 8:30 AM EDT) Creatinine, Urine 147.46 mg/dL [facility] Microalbumin Urine 53.0 mg/L H [facility] Microalbum Creatinine Ratio Ur 35.9(H) <30 ug/mg cr [facility] Comment:Albumin/Creatinine R atio Reference Ranges: Normal: < 30 ug/mg creatinine Microalbuminuria: 30 - 300 ug/mg creatinineClinical Albuminuria: > 300 ug/mg creatinine Urine (Urine, Random) 04/03/2024 8:30 AM EDT 04/03/2024 2:18 PM EDT Hilary Levy MD LAB URINE ORDERABLES Final Re sult [facility] [address] [place] [address] [phone] from Last 3 Months or Most Recently Relevant to Health Maintenance Care Teams Powder Operator Relationship Specialty Start Date End Date Hilary Levy MD [address] [place] [address] PCP - General Family Medicine 12/31/18 Dulce Borrero PharmD [address] [place] [address] Pharmacist Internal Medicine 09/07/24
--- OUTSIDE RECORDS SUMMARY | 2025-06-01 12:37 | XMS_ITS | Encounter Summary ---
Author Organization [employer] Address [address] [facility] 7 [place] [address] Care Team Providers Care Watch Manufacturing Supervisor Name Role Phone Hilary Levy MD Primary Care Provider [phone] Dulce Borrero PharmD Unavailable [phone] Reason for Visit * Reason Comments Med Change Request Encounter Details Date Type Department Care Team ([facility] Contact Info) Description 04/16/2024 Refill [facility] CHC MED & PEDS [address] [place], [place] [phone] Hilary Levy MD [address] [place] [address] New onset type 2 diabetes mellitus (CMS/HCC) [...] Description 06/16/2025 11:30 AM EST Office Visit [facility] CHC MED & PEDS [address] [place] [address] Hilary Levy MD [address] [place] [address] documented as of this encounter Visit Diagnoses Diagnosis New onset type 2 diabetes mellitus (HCC) documented in this encounter Additional Health Concerns Assessment Noted Time PHQ-9 Depression Total Score: 12 024 2:49 PM EDT documented as of this encounter Care Teams Watch Manufacturing Supervisor Relationship Specialty Start Date End Date Hilary Levy MD [address] [place] [address] PCP - General Family Medicine 12/31/18 Dulce Borrero PharmD [address] [place] [address] Pharmacist Internal Medicine 09/07/24 documented as of this encounter
[2025-06-01 15:16] LABS: Sickle Cell Scr NEGATIVE (NEGATIVE)
== END 2025-06-01 10:35 | disposition home or self-care (01) ==
LOC: HO.CHCLDS 10:34
PROVIDERS: Visit Provider Pediatrics
DX: Z30.09 Encounter for other general counseling and advice on contraception (principal)
CPT/HCPCS: 36415; 85660